=== PATIENT | male | born 2000 | race Caucasian/White ===

== ENCOUNTER 2024-01-17 17:26 | Emergency (ER) | payer MEDICAID ==
[~2024-01-17] VITALS: Ht 190.5 cm; Wt 66.8 kg
[2024-01-17 17:31] VITALS: BP 132/60; PULSE 61; RESP 16; TEMP 98.8; O2SAT 100
== END 2024-01-17 18:17 | disposition home or self-care (01) ==
LOC: ER 17:27
DX: R07.89 Other chest pain (principal)
CPT/HCPCS: 99282